=== PATIENT | female | born 1955 | race Caucasian/White ===

== ENCOUNTER → 2024-05-22 10:04 | Outpatient (REF) | payer BC, SELFPAY | LOC: RAD 10:04 | PROVIDERS: ATTENDING PHYSICIAN Nurse Practitioner Adult Health | DX: Z12.31 Encounter for screening mammogram for malignant neoplasm of breast (principal); Z13.820 Encounter for screening for osteoporosis | CPT/HCPCS: 77063; 77067; 77080 ==

== ENCOUNTER → 2025-05-24 11:15 | Outpatient (REF) | payer BC, SELFPAY | LOC: WDC 11:15 | PROVIDERS: ATTENDING PHYSICIAN Nurse Practitioner Adult Health | DX: Z12.31 Encounter for screening mammogram for malignant neoplasm of breast (principal) | CPT/HCPCS: 77063; 77067 ==